=== PATIENT | male | born 1995 | race Hispanic/Latino ===

== ENCOUNTER 2017-03-08 13:47 | Emergency (ER) | payer MEDICARE, OTHER ==
[~2017-03-08] VITALS: Ht 195.6 cm; Wt 104.5 kg
[~2017-03-08 13:47] MED LIST: AMOXICILLIN500 MG PO; DENIES CURRENT MEDS; HALOPERIDOL1 MG PO; NAPROSYN500 MG OR; NO MEDS; STRATTERA60 MG PO; TEMAZEPAM15 MG PO; TRILEPTAL300 M1 PO
[2017-03-08] MEDS ORDERED: DEPAKOTE250 MG PO (13:59)
[2017-03-08 14:50] LABS: HEMATOCRIT 37.4 % (39.0-50.0); HEMOGLOBIN 13.3 g/dl (14.0-18.0); IMMATURE GRANULOCYTES 0.5 % (0.0-1.0); MEAN CELL VOLUME 85.8 fL CALC (80.0-100.0); MEAN CORPUSCULAR HGB 30.5 pG CALC (26.0-32.0); MEAN CORPUSCULAR HGB CONC 35.6 g/L CALC (32.0-36.0); NEUT# 5.22 thou/uL (1.82-7.42); RED BLOOD COUNT 4.36 mill/uL (4.70-6.10); RED CELL DISTRI WIDTH 12.1 % (11.5-15.5)
[2017-03-08 14:56] LABS: ALBUMIN 3.9 g/dL (3.2-5.0); ALKALINE PHOSPHATASE 50 u/l (38-126); ANION GAP 14 (6-22 (CALC)); BILIRUBIN, TOTAL 0.4 mg/dL (0.0-1.4); BUN 13 mg/dL (9-20); BUN/CREATININE RATIO 14 (12-20 (CALC)); CALCIUM 8.5 mg/dL (8.4-10.2); CARBON DIOXIDE 27 mmol/l (22-30); CHLORIDE 104 mmol/l (95-108); CREATININE 0.9 mg/dL (0.7-1.3); GFR > 60 ML/MIN (>=60 (CALC)); GFR FOR AFR.AMER. > 60 ML/MIN (>=60 (CALC)); GLUCOSE 101 mg/dL (75-110); POTASSIUM 3.8 mmol/l (3.5-5.1); SGOT/AST 19 u/l (17-59); SGPT/ALT 29 u/l (21-72); SODIUM 141 mmol/l (137-146); TOTAL PROTEIN 6.3 g/dL (6.3-8.2)
[2017-03-08] MEDS ORDERED: PREVACID30 M3 PO (19:07)
[2017-03-08 19:23] VITALS: BP 133/74
== END 2017-03-08 19:24 | disposition home or self-care (01) ==
LOC: ED 13:47
PROVIDERS: Emergency Medicine
DX: T54.91XA Toxic effect of unspecified corrosive substance, accidental (unintentional), initial encounter (principal); K20.9 Esophagitis, unspecified; Y93.E9 Activity, other interior property and clothing maintenance; Y92.009 Unspecified place in unspecified non-institutional (private) residence as the place of occurrence of the external cause

== ENCOUNTER 2018-06-16 15:57 | Emergency (ER) | payer SELFPAY ==
[~2018-06-16] VITALS: Ht 195.6 cm; Wt 90.9 kg
[~2018-06-16 15:57] MED LIST changes: +DEPAKOTE250 MG PO; +PREVACID30 M3 PO
[2018-06-16] MEDS ORDERED: RISPERDAL1 M1 PO ×2 (16:51→16:54)
[2018-06-16] MEDS ORDERED: TRILEPTAL150 M1 PO ×2 (16:51→16:54)
[2018-06-16 17:01] VITALS: BP 136/85
== END 2018-06-16 17:15 | disposition home or self-care (01) | DRG 885 ==
LOC: ED 15:57
DX: F20.9 Schizophrenia, unspecified (principal); F31.9 Bipolar disorder, unspecified; Z76.0 Encounter for issue of repeat prescription

== ENCOUNTER 2018-06-21 22:31 | Emergency (ER) | payer MEDICARE, OTHER ==
[~2018-06-21] VITALS: Ht 195.6 cm; Wt 92.4 kg
[~2018-06-21 22:31] MED LIST changes: +RISPERDAL1 M1 PO; +TRILEPTAL150 M1 PO
[2018-06-22 00:18] VITALS: BP 112/72
== END 2018-06-22 00:10 | disposition home or self-care (01) ==
LOC: ED 22:31
DX: S80.01XA Contusion of right knee, initial encounter (principal); A64 Unspecified sexually transmitted disease; F31.9 Bipolar disorder, unspecified; F20.9 Schizophrenia, unspecified; W22.8XXA Striking against or struck by other objects, initial encounter

== ENCOUNTER 2020-08-07 11:59 | Emergency (ER) | payer MEDICARE, OTHER ==
[~2020-08-07] VITALS: Ht 195.6 cm; Wt 100.0 kg
[2020-08-07] MEDS ORDERED: CEPHALEXIN500 M1 PO (13:32)
[2020-08-07 13:53] VITALS: BP 132/88
== END 2020-08-07 13:53 | disposition home or self-care (01) ==
LOC: ED 11:59
DX: L03.031 Cellulitis of right toe (principal); S90.811A Abrasion, right foot, initial encounter; F31.9 Bipolar disorder, unspecified; F17.200 Nicotine dependence, unspecified, uncomplicated; W55.19XA Other contact with horse, initial encounter; Y93.52 Activity, horseback riding; Y92.009 Unspecified place in unspecified non-institutional (private) residence as the place of occurrence of the external cause

== ENCOUNTER 2021-04-05 17:17 | Emergency (ER) | payer MEDICARE, OTHER ==
[~2021-04-05] VITALS: Ht 195.6 cm; Wt 110.0 kg
[~2021-04-05 17:17] MED LIST changes: +CEPHALEXIN500 M1 PO
[2021-04-05] MEDS ORDERED: ZOFRAN4 MG/TAB PO (20:33)
[2021-04-05] MEDS ORDERED: TESSALON PERLE100 MG PO (20:33)
[2021-04-05 21:05] VITALS: BP 137/80
== END 2021-04-05 20:47 | disposition home or self-care (01) ==
LOC: ED 17:17
DX: R06.02 Shortness of breath (principal); R05 Cough; R11.2 Nausea with vomiting, unspecified; R19.7 Diarrhea, unspecified; C95.91 Leukemia, unspecified, in remission; F31.9 Bipolar disorder, unspecified; F20.9 Schizophrenia, unspecified; F17.200 Nicotine dependence, unspecified, uncomplicated; Z20.822 Contact with and (suspected) exposure to COVID-19

== ENCOUNTER 2023-02-23 21:13 | Emergency (ER) | payer OTHER ==
[~2023-02-23] VITALS: Ht 195.6 cm; Wt 122.0 kg
[~2023-02-23 21:13] MED LIST changes: +TESSALON PERLE100 MG PO; +ZOFRAN4 MG/TAB PO
[2023-02-23] MEDS ORDERED: BACTRIM DS1 TAB PO (21:31)
[2023-02-23] MEDS ORDERED: KEFLEX500 MG PO (21:31)
[2023-02-23] MEDS ORDERED: BENADRY2 EX (21:31)
[2023-02-23 21:46] VITALS: BP 128/96
== END 2023-02-23 21:48 | disposition home or self-care (01) | DRG 607 ==
LOC: ED 21:13
DX: S90.861A Insect bite (nonvenomous), right foot, initial encounter (principal); L08.9 Local infection of the skin and subcutaneous tissue, unspecified; C95.91 Leukemia, unspecified, in remission; F31.9 Bipolar disorder, unspecified; F17.200 Nicotine dependence, unspecified, uncomplicated; W57.XXXA Bitten or stung by nonvenomous insect and other nonvenomous arthropods, initial encounter